=== PATIENT | female | born 2000 | race Two or more races ===

== ENCOUNTER 2019-05-24 09:24 | Emergency (ER) | payer MEDICAID ==
--- NOTE | 2019-05-24 10:39 | ER Document Report ---
ED Medical Screen (RME) - General Chief Complaint: Abdominal Pain Stated Complaint: ABDOMINAL PAIN Time Seen by Provider: 05/24/19 10:32 Notes: Patient is a 18-year-old female who presents emergency department with a chief complaint of abdominal pain. Patient reports that she woke up around 7 AM this morning with left lower quadrant pain. Patient reports that this sometimes radiates into the left upper quadrant and right lower quadrant. Patient reports that she has had this happen to her twice before in the past and that the pain just subsided. Patient reports her last month usual cycles April 19, does have irregular periods, is sexually active and not on control. Patient reports this morning she also had some pressure with urination. Patient reports her last bowel movement was 1 to 2 weeks ago which is not abnormal for her. TRAVEL OUTSIDE OF THE [place] IN LAST 30 DAYS: No - Related Data Allergies/Adverse Reactions: No Known Allergies Allergy (Unverified 05/24/19 10:29) Physical Exam - Vital signs Vitals: Temp Pulse Resp BP Pulse Ox 98.5 F 85 14 101/63 100 05/24/19 09:28 05/24/19 09:28 05/24/19 09:28 05/24/19 09:28 05/24/19 09:28 - Abdominal Inspection: Normal Distension: No distension Bowel sounds: Normal Tenderness: Nontender Organomegaly: No organomegaly Course - Re-evaluation Re-evalutation: 05/24/19 10:39 I have greeted and performed a rapid initial assessment of this patient. A comprehensive ED assessment and evaluation of the patient, analysis of test results and completion of the medical decision making process will be conducted by additional ED providers. - Vital Signs Vital signs: Temp Pulse Resp BP Pulse Ox 98.5 F 85 14 101/63 100 05/24/19 09:28 05/24/19 09:28 05/24/19 09:28 05/24/19 09:28 05/24/19 09:28
[2019-05-24 11:02] LABS: ABSOLUTE BASOPHILS # (AUTO) 0.1 10^3/uL (0.0-0.2); ABSOLUTE LYMPHOCYTES (AUTO) 1.9 10^3/uL (0.5-4.7); ABSOLUTE MONOCYTES (AUTO) 0.6 10^3/uL (0.1-1.4); ABSOLUTE NEUT (AUTO) 10.5 10^3/uL (1.7-8.2); BASOPHILS % (AUTO) 0.4 % (0-2); EOSINOPHILS % (AUTO) 0.4 % (0-6); HEMATOCRIT 39.3 % (36.0-47.0); HEMOGLOBIN 13.3 g/dL (12.0-15.5); LYMPHOCYTES % (AUTO) 14.6 % (13-45); MEAN CORPUSCULAR HEMOGLOBIN 27.9 pg (27.0-33.4); MEAN CORPUSCULAR HGB CONC 33.7 g/dL (32.0-36.0); MEAN CORPUSCULAR VOLUME 83 fl (80-97); MONOCYTES % (AUTO) 4.3 % (3-13); PLATELET COUNT 269 10^3/uL (150-450); RED BLOOD COUNT 4.75 10^6/uL (3.72-5.28); RED CELL DISTRIBUTION WIDTH 13.9 % (11.5-14.0); SEGMENTED NEUTROPHILS % (AUTO) 80.3 % (42-78); TOTAL CELLS COUNTED % (AUTO) 100 %; WHITE BLOOD COUNT 13.1 10^3/uL (4.0-10.5)
[2019-05-24 11:23] LABS: ALBUMIN 4.4 g/dL (3.7-5.6); ALKALINE PHOSPHATASE 79 U/L (50-135); ANION GAP 11 (5-19); ASPARTATE AMINO TRANSFERASE 21 U/L (5-30); BILIRUBIN,DIRECT 0.3 mg/dL (0.0-0.4); BILIRUBIN,TOTAL 0.5 mg/dL (0.2-1.3); BLOOD UREA NITROGEN 10 mg/dL (7-20); CALCIUM 9.6 mg/dL (8.4-10.2); CARBON DIOXIDE 25 mmol/L (22-30); CHLORIDE 104 mmol/L (98-107); GLUCOSE 93 mg/dL (75-110); POTASSIUM 4.3 mmol/L (3.6-5.0); TOTAL PROTEIN 7.5 g/dL (6.3-8.2)
--- NOTE | 2019-05-24 12:15 | ER Document Report ---
ED GI/ - General Chief Complaint: Abdominal Pain Stated Complaint: ABDOMINAL PAIN Time Seen by Provider: 05/24/19 10:32 Notes: CHIEF COMPLAINT: Left pelvic pain for 2 days HPI: 18-year-old female presenting to the emergency department complaining of left pelvic pain over the last 2 days. No fever nausea vomiting or dysuria. Patient states she has intermittent episodes of pain like this that may last for 2 to 3 days then go away. She does not directly associate that with her menstrual cycles. Has not seen HOG OPERATOR for evaluation of these issues. States she is sexually active. ROS: See HPI - all other systems were reviewed and are otherwise negative Constitutional: no fever or recent illness Eyes: no drainage, no blurred vision ENT: no runny nose, no sore throat Cardiovascular: no chest pain Resp: no SOB, no cough GI: no vomiting, no diarrhea, positive abdominal pain : no dysuria, no vaginal discharge Integumentary: no rash Allergy: no hives Musculoskeletal: no extremity pain or swelling Neurological: no numbness/tingling, no weakness MEDICATIONS: I agree with the patient medications as charted by the RN. ALLERGIES: I agree with the allergies as charted by the RN. PAST MEDICAL HISTORY/PAST SURGICAL HISTORY: Reviewed and agree as charted by RN. SOCIAL HISTORY: Reviewed and agree as charted by RN. FAMILY HISTORY: No significant familial comorbid conditions directly related to patient complaint EXAM: Reviewed vital signs as charted by RN. CONSTITUTIONAL: Alert and oriented and responds appropriately to questions. Well-appearing; well-nourished HEAD: Normocephalic; atraumatic EYES: Conjunctivae clear, sclerae non-icteric ENT: normal nose; no rhinorrhea; moist mucous membranes NECK: Supple without meningismus CARD: RRR; no murmurs, no clicks, no rubs, no gallops; symmetric distal pulses RESP: Normal chest excursion without splinting or tachypnea; breath sounds clear and equal bilaterally; no wheezes, no rhonchi, no rales ABD/GI: Normal bowel sounds; non-distended; soft, mild tenderness in the left lower quadrant left pelvis region on palpation, no rebound, no guarding; no palpable organomegaly or masses : Female nurse a and p mechanic present. External genitalia normal. No skin lesions noted. Pelvic Exam: No active bleeding. Small amount of a thick white discharge. Cervix appears normal. No CMT. No lesions or masses. Uterus normal size and non tender. Right/Left adnexa normal size and mildly tender in the left adnexa. BACK: The back appears normal and is non-tender to palpation, there is no CVA tenderness EXT: Normal ROM in all joints; non-tender to palpation; no cyanosis, no effusions, no edema SKIN: Normal color for age and race; warm; dry; good turgor; no acute lesions noted NEURO: Moves all extremities equally; Motor and sensory function intact PSYCH: The patient's mood and manner are appropriate. Grooming and personal hygiene are appropriate. MDM: 18-year-old female presenting with left pelvic pain over the last 2 days. Does not have fever nausea or vomiting. Pain is low in the left pelvis I suspect an ovarian cyst. Does not directly associate the pain with her m enstrual cycles. Will obtain urinalysis and test. Will perform pelvic exam. She is sexually active. No history of ovarian cysts. Patient has not had a previous pelvic exam we discussed this at length, all questions were answered and she is in agreement to have the exam done. We will also obtain ultrasound to evaluate for torsion or cyst although I I have lower suspicion for torsion given the patient presentation and minimal discomfort TRAVEL OUTSIDE OF THE [place] IN LAST 30 DAYS: No - Related Data Allergies/Adverse Reactions: No Known Allergies Allergy (Unverified 05/24/19 10:29) Past Medical History - Social History Smoking Status: Unknown if Ever Smoked Family History: Reviewed & Not Pertinent Patient has suicidal ideation: No Patient has homicidal ideation: No Physical Exam - Vital signs Vitals: Temp Pulse Resp BP Pulse Ox 98.5 F 85 14 101/63 100 05/24/19 09:28 05/24/19 09:28 05/24/19 09:28 05/24/19 09:28 05/24/19 09:28 Course - Re-evaluation Re-evalutation: 05/24/19 14:23 Ultrasound shows a left hemorrhagic cyst, wet prep does not show evidence of infection. Will discharge home to follow-up with HOG OPERATOR. Pain management. - Vital Signs Vital signs: Temp Pulse Resp BP Pulse Ox 98.5 F 85 14 101/63 100 05/24/19 09:28 05/24/19 09:28 05/24/19 09:28 05/24/19 09:28 05/24/19 09:28 - Laboratory Result Diagrams: 05/24/19 10:45 05/24/19 10:45 Laboratory results interpreted by me: 05/24/19 05/24/19 10:45 12:10 WBC 13.1 H Absolute Neuts (auto) 10.5 H Seg Neutrophils % 80.3 H Urine Urobilinogen 2.0 H Ur Leukocyte Esterase SMALL H Discharge - Discharge Clinical Impression: Hemorrhagic cyst of left ovary Condition: Stable Disposition: HOME, SELF-CARE Additional Instructions: Pain medications as prescribed, do not drive if taking narcotics for pain. Follow-up closely with HOG OPERATOR for further evaluation and treatment. Ultrasound suggested an ovarian cyst on the left as the reason you are having discomfort there Prescriptions: Naproxen 500 mg PO BID PRN #14 tablet PRN Reason: Tramadol HCl [Ultram 50 mg Tablet] 50 mg PO Q6 PRN #12 tab PRN Reason: Referrals: MACARIO GUERRERO MD [ACTIVE STAFF] - Follow up as needed
[2019-05-24 12:44] LABS: EPITHELIALS (WET MOUNT) 4+ EPITHELIALS SEEN; T.VAGINALIS (WET MOUNT) NO TRICHOMONAS SEEN; WBCS (WET MOUNT) RARE WBCS SEEN; YEAST (WET MOUNT) NO YEAST SEEN
[2019-05-24 12:46] LABS: APPEARANCE,URINE SLIGHTLY-CLOUDY; BILIRUBIN,URINE NEGATIVE (NEGATIVE); COLOR,URINE YELLOW; GLUCOSE, URINE NEGATIVE (NEGATIVE); KETONES,URINE NEGATIVE (NEGATIVE); LEUKOCYTE ESTERASE,URINE SMALL (NEGATIVE); NITRITE,URINE NEGATIVE (NEGATIVE); PROTEIN,URINE NEGATIVE (NEGATIVE); URINE SPECIFIC GRAVITY 1.012
[2019-05-24 14:15] LABS: CHLAM PCR NOT DETECTED (NOT DETECT)
--- NOTE | 2019-05-24 14:18 | RADIOLOGY REPORT (SQ) ---
EXAM DESCRIPTION: U/S NON OB PEL TV W/DOPPLER COMPLETED DATE/TIME: 05/24/2019 1:52 pm REASON FOR STUDY: left pelvic pain COMPARISON: None. TECHNIQUE: Dynamic and static grayscale images acquired of the pelvis via transvaginal approach and recorded on PACS. Additional selected color Doppler and spectral images recorded. LIMITATIONS: None. FINDINGS: UTERUS: Contour normal. No mass. ENDOMETRIAL STRIPE: No focal or generalized thickening. No masses. CERVIX: No nabothian cysts. RIGHT OVARY AND DOPPLER: Normal size. No worrisome masses. Normal arterial vascular flow without evid ence for torsion. LEFT OVARY AND DOPPLER: The left ovary is enlarged compared of the right. There is flow demonstrated . There is a complex mildly hypoechogenic lesion within the left ovary measured 2.6 x 6 5 the 1.4 cm . Most likely hemorrhagic cyst. FREE FLUID: There is moderate fluid in the cul de sac this is complex. OTHER: No other significant finding. MEASUREMENTS: UTERUS: 7.9 x 4.4 x 3.2 cm. ENDOMETRIAL STRIPE: 9.8 mm. RIGHT OVARY: 2.6 x 2.8 x 1.5 cm. LEFT OVARY: 5.1 x 2.9 x 2.7 cm. IMPRESSION: Complex hypoechoic structure in the left ovary measured 2.6 x 2.5 x 1.4 cm. Possibly he morrhagic cyst. There is complex fluid in the posterior cul-de-sac as well. TECHNICAL DOCUMENTATION: JOB ID: [id number] [employer]- All Rights Reserved Rev-09/12 Reading location - IP/workstation name: [email or web address]
[2019-05-24 15:18] VITALS: BP 107/70
== END 2019-05-24 15:17 | disposition home or self-care (01) ==
LOC: ER 09:24
DX: N83.202 Unspecified ovarian cyst, left side (principal); R10.2 Pelvic and perineal pain
CPT/HCPCS: 36415; 76830; 80053; 81001; 81025; 83690; 85025; 87210; 87491; 87591; 93976; 99284